=== PATIENT | male | born 1985 | race Asian ===

== ENCOUNTER 2017-08-30 12:13 | Emergency (ER) | payer OTHER ==
--- NOTE | 2017-08-30 12:57 | EDPHY ---
HPI/HX/ROS/PE/MDM Narrative: CHIEF COMPLAINT: Mid-abdominal pain HISTORY OF PRESENT ILLNESS: The patient is a 31 y/o male complaining of cramping, waxing and waning, worsening mid-abdominal pain onset this morning after eating pasta and milk for breakfast. Two weeks ago he had a similar pain in the same location, that lasted all night, but eventually went away on it's own. He thought having a bowel movement might help his symptoms, but this had no effect on them. He also believes vomiting might make his symptoms better, but he denies nausea. Prior episodes of excessive flatulence did not cause pains like today. Denies history of prior abdominal surgeries, GERD, gallbladder problems. Denies tobacco, alcohol or marijuana use. No fever, chills, chest pain, shortness of breath, palpitations, vomiting, diarrhea, urinary complaints, headache, lightheadedness. REVIEW OF SYSTEMS: Aside from elements discussed in the HPI, a comprehensive 10-point review of systems was reviewed and is negative. PAST MEDICAL HISTORY: Denies SOCIAL HISTORY: , lives in [facility] VITAL SIGNS: Reviewed by me GENERAL: Well-developed, well-nourished, resting comfortably in no respiratory distress. HEENT: Atraumatic. Eyes: No icterus, no injection. Mouth: moist mucous membranes. No erythema or lesions. Neck: supple with no adenopathy. LUNGS: Clear to auscultation bilaterally, no wheezes, rhonchi or rales. CARDIAC: Regular rate and rhythm, no rubs, murmurs or gallops. ABDOMEN: Mid-abdominal, waxing and waning pain between xiphoid and umbilicus. Soft, nondistended, bowel sounds normal. BACK: No CVA tenderness. EXTREMITIES: No trauma. No edema. Range of motion is normal throughout. NEURO: Alert and oriented, grossly nonfocal. SKIN: Warm and dry, no rash. PSYCHIATRIC: Normal mentation, no agitation. Portions of this note were transcribed by a pediatric medical assistant. I personally performed a history, physical exam, medical decision making, and confirmed accuracy of information the transcribed note. ED Course: The patient is a 31 y/o male presenting with cramping, waxing and waning, worsening mid-abdominal pain onset this morning after eating pasta and milk for breakfast. On exam he has mid-abdominal, waxing and waning pain between his xiphoid and umbilicus. He does not have abdominal tenderness to palpation. Labs ordered. 1L IV NS and GI cocktail given. 3:10 p.m.: Patient was reexamined. His seen minimal relief with the fluids and GI cocktail. Pain is coming in waves. CT scan abdomen pelvis ordered. Patient also reports that he takes his simvastatin for high triglycerides. Patient's lipase is normal but will evaluate his pancreas on the CT scan. Toradol and fentanyl administered. 1553: Spoke with radiologist, patient has a normal abdominal CT. 1620: Patient is feeling better after Toradol and Fentanyl. I have prescribed him Bentyl and advised him to take Prilosec. Return precautions provided; patient is comfortable with this plan. MDM: After obtaining the patients history and performing an examination, differential diagnosis considered included but was not limited to GERD, gastritis, appendicitis, cholecystitis, gastritis, pancreatitis, ileus, gastroenteritis, kidney stones, urinary tract infections and other causes. - Data Points Imaging Results: Impression: 1. Normal CT abdomen and pelvis, with contrast enhancement. 2. No CT evidence of appendicitis, abscess, or bowel obstruction. Findings and recommendations discussed with Emergency Department physician, Carmenza Ivy M.D., at 1553 hours, on August 30, 2017. Final report concurs with initial preliminary interpretation. Dictated By: Ori Perrin Imaging: Discussed imaging studies w/ material reclaimer Radiologist, I viewed and interpreted images myself Laboratory Results: Laboratory Results 08/30/17 13:04 08/30/17 13:04 Medications Given: Discontinued Medications Al Hydroxide/Mg Hydroxide (Maalox Susp) 30 ml PO ONCE ONE Stop: 08/30/17 13:21 Last Admin: 08/30/17 13:26 Dose: 30 ml Fentanyl (Sublimaze) 50 mcg IVP EDNOW ONE Stop: 08/30/17 15:11 Last Admin: 08/30/17 15:15 Dose: 50 mcg Hyoscyamine Sulfate (Levsin, Hyomax-Sl) 0.25 mg PO ONCE ONE Stop: 08/30/17 13:21 Last Admin: 08/30/17 13:26 Dose: 0.25 mg Sodium Chloride (Ns) 1,000 mls @ 0 mls/hr IV EDNOW ONE; Wide Open PRN Reason: Protocol Stop: 08/30/17 13:21 Last Admin: 08/30/17 13:27 Dose: 1,000 mls Ketorolac Tromethamine (Toradol) 15 mg IVP EDNOW ONE Stop: 08/30/17 15:11 Last Admin: 08/30/17 15:15 Dose: 15 mg Lidocaine (Lidocaine 2% Viscous) 15 ml PO ONCE ONE Stop: 08/30/17 13:21 Last Admin: 08/30/17 13:26 Dose: 15 ml General Time Seen by Provider: 08/30/17 12:57 Initial Vital Signs: Initial Vital Signs Temperature (C) 36.4 C 08/30/17 12:27 Heart Rate 55 L 08/30/17 12:27 Respiratory Rate 16 08/30/17 12:27 Blood Pressure 118/69 08/30/17 12:27 O2 Sat (%) 100 08/30/17 12:27 O2 Delivery Mode Room Air Allergies/Adverse Reactions: No Known Allergies Allergy (Unverified 08/30/17 12:26) Home Medications: Medication Instructions Recorded Dicyclomine [Bentyl 20 MG (*)] 20 mg PO QID #20 tab 08/30/17 Omeprazole 20 mg PO DAILY #30 capsule. 08/30/17 Simvastatin 08/30/17 Departure - Departure Disposition: Home, Routine, Self-Care Clinical Impression: Abdominal pain Qualifiers: Abdominal location: upper abdomen, unspecified Qualified Code(s): R10.10 - Upper abdominal pain, unspecified Condition: Good Instructions: Acute Abdominal Pain (ED) Additional Instructions: Start taking Prilosec, you can buy this [id number], but I have provided you a prescription. Take Bentyl as prescribed. Follow up with your primary care provider for worsening symptoms, or if you develop fever or vomiting. Return to the Emergency Department for fever, chest pain, shortness of breath, increasing pain, or other worsening of condition. Referrals: Ros Dunham MD [Primary Care Provider] - As per Instructions Prescriptions: Dicyclomine [Bentyl 20 MG (*)] 20 mg PO QID #20 tab Omeprazole 20 mg PO DAILY #30 capsule. Report Scribed for: Carmenza Ivy Report Scribed by: Marion Hansen Date of Report: 08/30/17 Time of Report: 12:57
[2017-08-30] MEDS ORDERED: NS 1,000 ML IV ONE (13:20)
[2017-08-30] MEDS ORDERED: MAG HYDROX/AL HYDROX/SIMETH 30 ML UDCUP PO ONE (13:20)
[2017-08-30] MEDS ORDERED: LIDOCAINE 2% VISCOUS 15 ML UDCUP PO ONE (13:20)
[2017-08-30] MEDS ORDERED: HYOSCYAMINE SULFATE 0.125 MG TAB PO ONE (13:20)
[2017-08-30 13:34] LABS: PLATELET COUNT 216 10^3/uL (150-400)
[2017-08-30] MEDS ORDERED: fentaNYL 100 MCG/2 ML INJ IVP ONE (15:10)
[2017-08-30] MEDS ORDERED: KETOROLAC 15 MG/1 ML SDV IVP ONE (15:10)
[2017-08-30] MEDS ORDERED: IOPAMIDOL (ISOVUE-300) 100 ML BTL ONE (15:16)
[2017-08-30 16:22] VITALS: BP 121/71
== END 2017-08-30 16:22 | disposition home or self-care (01) ==
DX: R10.10 Upper abdominal pain, unspecified (principal); E86.9 Volume depletion, unspecified
CPT/HCPCS: 96374; J1885; J3010; Q9967